=== PATIENT | male | born 2000 | race Caucasian/White ===

== ENCOUNTER → 2019-07-20 | Outpatient (CLI) | payer BC, OTHER ==
--- NOTE | 2019-07-20 14:00 | Diagnostic Imaging Report ---
INDICATION: Shoulder pain. 3 views were obtained. FINDINGS: The alignment is normal. No fracture or dislocation. Right lung is clear. Soft tissues are unremarkable IMPRESSION: No focal abnormality in the right shoulder. Dictated by: Dictated on workstation # [id number]
== END ==
LOC: RAD FS 13:27
PROVIDERS: ATTEND Nurse Practitioner
DX: M25.511 Pain in right shoulder (principal)
CPT/HCPCS: 73030